=== PATIENT | male | born 1980 | race Caucasian/White ===

== ENCOUNTER 2020-05-16 20:45 | Emergency (ER) | payer BC, SELFPAY ==
[2020-05-16 20:49] VITALS: BP 164/98; PULSE 89; RESP 20; TEMP 36.2; O2SAT 98
[2020-05-16] MEDS: TAMSULOSIN HCL 0.4 MG CAPSULE PO (21:27)
[2020-05-16] MEDS: IBUPROFEN 400 MG TABLET 800 MG PO (21:27)
[2020-05-16 21:35] LABS: Add Urine Microscopic? NO; Appearance Urine Clear (Clear); Bilirubin Urine Negative (Negative); Blood Urine Negative (Negative); Color Urine Yellow (Yellow); Glucose Urine UA Negative (Negative); Ketones Urine Negative (Negative); Leukocyte Esterase Ur Negative LEU/UL (Negative); Nitrate Urine Negative (Negative); Protein Urine Negative (Negative); Specific Grav Ur 1.013 (1.001-1.035); Urobilinogen Urine Negative mg/dL (<2.0)
--- NOTE | 2020-05-16 22:38 | ED.ABDPAIN ---
HPI - Abdominal Pain General Chief Complaint: Abdominal Pain Stated Complaint: kidney stone? Time Seen by Provider: 05/16/20 20:59 Source: patient Mode of arrival: ambulatory Limitations: no limitations History of Present Illness HPI narrative: 39-year-old male History of kidney stones Complains of abdominal pain which began as a left-sided flank pain in his move down to the lower abdomen, then was experienced his testicle pain and now was just a tingling sensation in the tip of his penis when examined He had some nausea but did not throw up, no fever, no blood in his urine Related Data Allergies Allergy/AdvReac Type Severity Reaction Status Date / Time codeine Allergy Unknown Unknown Verified 05/16/20 20:51 erythromycin base Allergy Unknown Abdominal Verified 05/16/20 20:51 pain Review of Systems Review of Systems: All systems reviewed & are unremarkable except as noted in HPI and below Constitutional: Constitutional: Denies chills, Denies fatigue, Denies fever(s), Denies headache(s) and Denies weakness Eyes: Eyes: Reports no additional eye complaints and Denies change in vision ENT: Denies headache(s), Denies epistaxis, Denies nasal congestion and Denies sore throat Cardiovascular: Cardiovascular: Denies chest pain, Denies leg edema, Denies palpitations and Denies dyspnea Respiratory: Respiratory: Denies cough, Denies dyspnea and Denies wheezing Gastrointestinal: Gastrointestinal: Reports abdominal pain, Denies diarrhea, Reports nausea and Denies vomiting Genitourinary: Genitourinary: Denies hematuria, Denies dysuria, Reports testicular pain and Denies urinary frequency Musculoskeletal: Musculoskeletal: Reports back pain, Denies deformity, Denies arthralgias, Denies joint swelling, Denies muscle weakness and Denies numbness Integumentary/Breasts: Skin/Breast: Denies rash and Denies wounds Neurologic: Denies headache(s), Denies focal weakness, Denies numbness and Denies weakness Psychiatric: Psychiatric: Reports no additional psychiatric complaints Endocrine: Endocrine: Denies fatigue and Denies palpitations Hematologic/Lymphatic: Hematologic/Lymphatic: Denies easy bleeding and Denies easy bruising Allergic/Immunologic: Allergic/Immunologic: Denies wheezing PMFSH Family History Family History Father Diabetes mellitus Hypertension Family history of cardiovascular disease Cerebrovascular accident Sibling Hypertension Social History Social History Smoking status: Never smoker Second hand tobacco smoke exposure: No Alcohol intake: never Substance use: never Substance use type: does not use Gender identity (if verbalized by the patient): Male Exam Const: General: no acute distress, well developed, alert and awake Nutritional Appearance: well nourished Orientation/consciousness: patient oriented x3 (alert) Limitations: no limitations HENMT: Head: normocephalic and atraumatic Ears: external ears normal General nose exam: No nasal discharge present and no epistaxis Face and sinus: face symmetric Eyes: Conjunctivae: conjunctivae normal Sclera: sclerae normal EOM: EOMs intact bilaterally Neck: Neck: normal visual inspection, supple and no JVD Chest: Chest palpation & inspection: deferred Resp: Effort & Inspection: normal respiratory effort and not tachypneic Auscultation: other (BS =) Cardio: Rate: regular rate Rhythm: regular rhythm Heart sounds: no gallops and no murmurs GI: Inspection: normal to inspection GI Palp: Yes Soft to palpation, No Tenderness to palpation present (GI), No Guarding due to palpation present (GI) and No Rebound tenderness present : General: Yes no CVA tenderness Penis: Yes normal penis Testes: no testicular swelling and no testicular tenderness Back/Spine/Pelvis: Back: no CVA tenderness Thoracic/Lumbar Spine: thoracic and lumbar s
[2020-05-16 23:28] VITALS: BP 166/96; PULSE 75; RESP 18; O2SAT 98
== END 2020-05-16 23:30 | disposition home or self-care (01) ==
PROVIDERS: Emergency Provider Emergency Medicine; PCP Family Medicine
DX: N20.0 Calculus of kidney (principal)
CPT/HCPCS: 81003; 99283; A9270

== ENCOUNTER 2024-11-19 14:44 | Outpatient (CLI) | payer OTHER, SELFPAY ==
--- NOTE | ~2024-11-19 | XR_ITS ---
Right Knee Technique: AP and lateral views were obtained. Clinical History: Pain Findings: No fracture or dislocation is seen. Osseous alignment is anatomic. Joint spaces are preserv ed without degenerative or erosive change. Soft tissues are unremarkable. No joint effusion is seen. Impression: Unremarkable right knee radiographs. Reviewed, dictated and finalized at location . Impression: Unremarkable right knee radiographs.
== END 2024-11-19 14:45 | disposition home or self-care (01) ==
LOC: MICIMG 14:45
PROVIDERS: PCP Family Medicine
DX: M25.561 Pain in right knee (principal)
CPT/HCPCS: 73560